=== PATIENT | male | born 1940 | race Caucasian/White ===

== ENCOUNTER 2022-01-09 12:34 | Emergency (ER) | payer MEDICARE ==
[~2022-01-09] VITALS: Ht 175.3 cm; Wt 89.5 kg
[2022-01-09] MEDS ORDERED: LABETALOL HCL100 MG PO (12:59)
[2022-01-09] MEDS ORDERED: NORVASC5 MG PO (12:59)
[2022-01-09] MEDS ORDERED: LIPITOR10 MG PO (13:00)
[2022-01-09] MEDS ORDERED: ALLOPURINOL100 MG PO (13:00)
[2022-01-09] MEDS ORDERED: VITAMIN D310 MC1 PO (13:01)
[2022-01-09] MEDS ORDERED: VITAMIN E67 MG PO (13:01)
[2022-01-09] MEDS ORDERED: FISH OIL 1,0001 EAC7 PO (13:01)
[2022-01-09] MEDS ORDERED: ASPIRIN81 MG PO (13:02)
[2022-01-09] MEDS ORDERED: LASIX20 MG PO (13:02)
[2022-01-09] MEDS ORDERED: LASIX40 MG PO (14:18)
[2022-01-09] MEDS ORDERED: PREDNISONE20 MG PO (14:18)
--- NOTE | 2022-01-09 16:50 | EKG ---
[facility] [address] [facility] [place] [address] Signed Atrial flutter with variable AV block with premature ventricular or aberrantly conducted complexes Low voltage QRS Septal infarct , age undetermined Abnormal ECG No previous ECGs available Confirmed by IRON FLOWERS MD ([id number]) on 01/09/2022 4:50:07 PM Electronically Signed By: IRON FLOWERS MD 01/09/22 1650 PATIENT NAME: NILS MILES Electrocardiogram DATE OF : 40 PHYSICIAN: IRON FLOWERS MD REPORT #: [id number] REPORT IS CONFIDENTIAL AND NOT TO BE RELEASED WITHOUT AUTHORIZATION
== END 2022-01-09 14:58 | disposition home or self-care (01) ==
LOC: ED 12:34
DX: R06.02 Shortness of breath (principal); I13.0 Hypertensive heart and chronic kidney disease with heart failure and stage 1 through stage 4 chronic kidney disease, or unspecified chronic kidney disease; I50.9 Heart failure, unspecified; N18.30 Chronic kidney disease, stage 3 unspecified; I48.91 Unspecified atrial fibrillation; Z79.899 Other long term (current) drug therapy; Z79.82 Long term (current) use of aspirin; Z20.822 Contact with and (suspected) exposure to COVID-19
CPT/HCPCS: 36415; 71045; 80053; 83735; 83880; 84484; 85025; 87502; 93005; 93010; C9803; J1100; J1940; U0003

== ENCOUNTER 2022-01-16 10:25 | Emergency (ER) | payer MEDICARE ==
[~2022-01-16] VITALS: Ht 175.3 cm; Wt 93.8 kg
[~2022-01-16 10:25] MED LIST: ALLOPURINOL100 MG PO; ASPIRIN81 MG PO; FISH OIL 1,0001 EAC7 PO; LABETALOL HCL100 MG PO; LASIX20 MG PO; LASIX40 MG PO; LIPITOR10 MG PO; NORVASC5 MG PO; PREDNISONE20 MG PO; VITAMIN D310 MC1 PO; VITAMIN E67 MG PO
--- OUTSIDE RECORDS SUMMARY | 2022-01-16 10:32 | XMS ---
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 Crystal has no Care Guidelines for this patient. Abraham VISIT COUNT (12 MO.) 2 [facility] TOTAL 2 NOTE: Visits indicate total known visits. ED/[facility] VISIT TRACKING (12 MO.) [facility] 10[facility] [place] [facility] COMPLAINT: - THREADY PULSE, NO SLEEP 01/09/2022 12:[address] 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
[2022-01-16] MEDS ORDERED: KEPPRA750 MG PO (11:43)
[2022-01-16] MEDS ORDERED: LABETALOL HCL100 MG PO (11:44)
[2022-01-16] MEDS ORDERED: LIPITOR20 MG PO (11:44)
[2022-01-16] MEDS ORDERED: NORVASC10 MG PO (11:45)
[2022-01-16] MEDS ORDERED: TYLENOL325 MG PO (11:45)
[2022-01-16] MEDS ORDERED: FLOVENT HFA10.6 GM INH (11:46)
[2022-01-16] MEDS ORDERED: VENTOLIN HFA18 GM INH (11:46)
[2022-01-16] MEDS ORDERED: VITAMIN D325 MC2 PO (11:47)
[2022-01-16] MEDS ORDERED: DOXYCYCLINE HY100 MG PO (15:52)
[2022-01-16] MEDS ORDERED: TRAZODONE HCL50 MG PO (16:09)
--- NOTE | 2022-01-16 20:37 | EKG ---
[facility] [address] [place] [address] Signed Atrial flutter with variable AV block with premature ventricular or aberrantly conducted complexes Septal infarct (cited on or before 09-JAN-2022) Abnormal ECG When compared with ECG of 09-JAN-2022 12:42, Nonspecific T wave abnormality no longer evident in Inferior leads Confirmed by JOHNNIE MACKAY MD ([id number]) on 01/16/2022 8:37:19 PM Electronically Signed By: JOHNNIE MACKAY MD 01/16/222036 PATIENT NAME: NILS MILES Electrocardiogram DATE OF : 40 PHYSICIAN: JOHNNIE MACKAY MD REPORT #: [id number] REPORT IS CONFIDENTIAL AND NOT TO BE RELEASED WITHOUT AUTHORIZATION
== END 2022-01-16 16:30 | disposition home or self-care (01) ==
LOC: ED 10:25
DX: I13.0 Hypertensive heart and chronic kidney disease with heart failure and stage 1 through stage 4 chronic kidney disease, or unspecified chronic kidney disease (principal); I50.9 Heart failure, unspecified; N18.30 Chronic kidney disease, stage 3 unspecified; J18.9 Pneumonia, unspecified organism; Z86.73 Personal history of transient ischemic attack (TIA), and cerebral infarction without residual deficits; Z88.8 Allergy status to other drugs, medicaments and biological substances; Z79.82 Long term (current) use of aspirin; Z79.899 Other long term (current) drug therapy
CPT/HCPCS: 36415; 71045; 80053; 81001; 83605; 83880; 85025; 87040; 87502; 93005; 93010; J1940; U0003

== ENCOUNTER 2022-02-02 10:49 | Inpatient (IN) | payer MEDICARE ==
[~2022-02-02] VITALS: Ht 175.3 cm; Wt 80.5 kg
[~2022-02-02 10:49] MED LIST changes: +DOXYCYCLINE HY100 MG PO; +FLOVENT HFA10.6 GM INH; +KEPPRA750 MG PO; +LIPITOR20 MG PO; +NORVASC10 MG PO; +TRAZODONE HCL50 MG PO; +TYLENOL325 MG PO; +VENTOLIN HFA18 GM INH; +VITAMIN D325 MC2 PO; +VITAMIN E400 UNI1 PO; -VITAMIN E67 MG PO
--- OUTSIDE RECORDS SUMMARY | 2022-02-02 10:58 | XMS ---
PreManage Notification: NILS MILES Security Shelver Events No recent Security Events currently on file CRITERIA MET - [facility] - 2 Visits in 30 Days CARE PROVIDERS There are no care providers on record at this time. Crystal has no Care Guidelines for this patient. Abraham VISIT COUNT (12 MO.) [address] [facility] TOTAL 3 NOTE: Visits indicate total known visits. ED/C VISIT TRACKING (12 MO.) 02/02/2022 10:[address] 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 - Fever, unspecified - Heart failure, unspecified - Chronic kidney disease, stage 3 unspecified 01/09/2022 12:36 [facility] [place] TYPE: Emergency COMPLAINT: - DIFFICULTY BREATHING, LOW O2 SATS DIAGNOSES: - Other detention (current) drug therapy - 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
[2022-02-02] MEDS ORDERED: FUROSEMIDE40 MG PO (11:12)
--- NOTE | 2022-02-02 13:40 | NUR ---
Pt arrives to room via stretcher accompanied by ED staff. Portable oxygen in place via non-rebreather at 15L. Pt ambulatory from ED stretcher to bed, and tolerated well. Work of breathing labored but unchanged from arrival. Continues to have oxygen in place at 15L via non-rebreather. Assisted pt into pt gown, pt then ambulatory to recliner at bedside, tolerated that well. Vital signs taken, pt reports F[place], pain level 3/10, requesting Tylenol and a meal. Care assumed by charge nurse Maren. Tylenol given and call to dietary for meal tray.
--- NOTE | 2022-02-02 14:40 | NUR ---
pt up in chair resting with meal - pt reports he is hungary, no food today. alert and oriented, call light in reach.
--- NOTE | 2022-02-02 15:14 | NUR ---
pt talkative up in chair eating - talking about end of life and his options in ER - declines ventalator - using 15 L non re breather mask inbetween eating.
--- NOTE | 2022-02-02 15:22 | NUR ---
Spoke with Nikita, he states he moved here 6 weeks ago to live at a lower elevation due to his interstitial lung disease. He lives alone in an apartment with 6 steps. He denies issues getting in or out of his home. He drives and drove himself to the hospital. States he has home 02 concentrator and tanks from [facility] at 2-4 L as needed. He denies financial issues. He states he girlfriend, Ryann Aguiar [phone] will be arriving to care for him. She is a nurse. He is now stating he should have not left her. He denies other needs and plans on dc to home when cleared medically. Pt is sob and coughing frequently with his NRB mask in place.
[2022-02-02] MEDS ORDERED: ALLOPURINOL100 MG PO (16:16)
--- NOTE | 2022-02-02 16:17 | NUR ---
MED REC COMPLETE
--- NOTE | 2022-02-02 17:27 | NUR ---
MEDICATION DUE. PT REPORTS HE ALREADY TOOK LIPITOR THIS MORNING AND THAT HE NORMALLY TAKES THIS MEDICATION IN THE MORNING. PHARMACY CALLED, JERRY STATES HE WILL RETIME MEDICATION FOR THE MORNING. PT DENIES ADDITIONAL REQUESTS OR COMPLAINTS. PT DENIES PAIN AND NAUSEA. PT REPORTS COLD SORBET HIS HELPING HIS DRY THROAT. NO ADDITIONAL NEEDS AT THIS TIME. CALL LIGHT WITHIN REACH.
--- NOTE | 2022-02-02 19:32 | NUR ---
PT REQUESTS ASSISTANCE UP TO RESTROOM. STAND BY ASSIST UP TO RESTROOM FOR LINE MANAGEMENT. PT VOIDS 200ML DARK YELLOW URINE. PT PERFORMS SELF ORAL CARE. PT STATES SHORTNESS OF BREATH IS "MUCH BETTER" SINCE ADMISSION. STAND BY ASSIST BACK TO BED. NO ADDITONAL REQUESTS OR COMPLAINTS. CALL LIGHT WITHIN REACH.
--- NOTE | 2022-02-02 20:50 | NUR ---
RETIMED [facility] FOR MORNING ADMINSTRATION PER TELEPHONE ORDER DR. MACKAY. PATIENT OXYGEN SATURATION 95% ON 15 L HIGH FLOW, DR. MACKAY VERBALIZED OKAY TO TITRATE TO MAINTAIN OXYGEN SATURATION >90%. UPDATED PATIENT ON POC, ORIENTED TO ROOM, DISCUSSED FALL RISKS. PATIENT VERABLIZED WOULD CALL WHEN AMBULATING.
--- NOTE | 2022-02-02 21:00 | NUR ---
TITRATED PATIENT TO 13 LITERS HIGH FLOW NC, 02 SATURATION 92% PATIENT BREATHING EASY, NO SIGNS OF DISTRESS. UP TO BATHROOM USE URINAL, PATIENT INSISTANT AMBULATE INTO BATHROOM, INCREASED O2 TO 15 LITERS WITH ACTIVITY. BACK TO BED PATIENT LIPS APPEAR CYANOTIC, USING ACCESSORY MUSCLES AND BREATHING LABORED. APPEARED TO TAKE ABOUT 5 MINUTES FOR PATIENT TO RECOVER. PATIENT REQUESTED TO KEEP OXYGEN AT THE 15 LITERS. PROVIDED REASSURANCE AND ACKNOWLEDGED THE PATIENT'S REQUEST. PLAN TO MAINTAIN AT 15 LITERS HIGH FLOW.
--- NOTE | 2022-02-02 22:46 | EKG ---
[facility] [address] [facility] [place] [address] Signed Atrial flutter with variable AV block with premature ventricular or aberrantly conducted complexes Septal infarct (cited on or before 09-JAN-2022) Abnormal ECG When compared with ECG of 02-FEB-2022 10:57, (Unconfirmed) Atrial flutter has replaced Atrial fibrillation Confirmed by JOHNNIE MACKAY MD ([id number]) on 02/02/2022 10:46:05 PM Electronically Signed By: JOHNNIE MACKAY MD 02/02/22 2246 PATIENT NAME: NILS MILES Electrocardiogram DATE OF : 40 PHYSICIAN: JOHNNIE MACKAY MD REPORT #: [id number] REPORT IS CONFIDENTIAL AND NOT TO BE RELEASED WITHOUT AUTHORIZATION
--- NOTE | 2022-02-03 | NUR ---
PATIENT'S LIFE PARTNER KERI ARRIVED. PATIENT UP TO BATHROOM WITH VISITOR WHO PLANS TO STAY THE NIGHT AND OFFER SUPPORT TO PATIENT. KERI VERBALIZED CONCERNS WITH PATIENT NOT BEING ABLE TO RETURN HOME TO HIS APARTMENT AND WANTING TO HAVE CARE MEETING WITH DR. MACKAY IN REGARDS TO TRANSITIONING TO COMFORT CARE. SENT DR. MACKAY A MESSAGE AND REPROTED REQUEST TO CHARGE NURSE. ALSO REQUESTED PASTORIAL CARE TO BE CONTACTED IN THE MORNING.
--- NOTE | 2022-02-03 00:05 | NUR ---
BED ALARM GOING OFF, pt REPOSITIONING SELF IN BED. WARM BLANKET PROVIDED AND BED ALARM RESUMED. CALL LIGHT IN REACH, WILL CONTINUE TO MONITOR.
--- NOTE | 2022-02-03 01:03 | NUR ---
PATIENT UP TO BATHROOM, APPEARS TO BE WIDE AWAKE STATING " I THINK THE STEROIDS ARE WORKING GREAT!" PATIENT VERY TALKATIVE. BREATHING UNLABORED, AT REST. KERI PLANNING TO STAY THE NIGHT.
--- NOTE | 2022-02-03 06:00 | NUR ---
PATIENT SLEPT WELL FROM 0200 TILL ABOUT 0600. PATIENT APPEARS AWAKE AND ALERT. 15L HIGH FLOW NC @ 98%. NO COMPLAINTS OF PAIN.
--- NOTE | 2022-02-03 07:15 | NUR ---
REPORT RECEIVED FROM RAISA RIOS. PT LAYING IN BED ON RIGHT SIDE. SIGNIFICANT OTHER IN ROOM ON COUCH. PT RESPONDS WHEN ADDRESSED. PT ON 15L NC. PT REPORTS NO NEEDS AT THIS TIME. CALL LIGHT IN REACH.
--- NOTE | 2022-02-03 08:15 | NUR ---
THIS RN IN TO PERFORM AM VS SO AM B/P MEDS CAN BE GIVEN. PATIENT'S VS ARE STABLE. PATIENT'S BREAKFAST HAS JUST ARRIVED AND THIS RN HAS SET P PATIENT'S TRAY FOR HIM TO EAT. PATIENT S/O INFORMED SHE WOULD HAVE TO LEAVE THE HOSPITAL FOR FOOD THE [employer] DOES NOT SERVE VISITORS ON THE WEEKEND. S/O KERI VERBALIZED UNDERSTANDING. CALL LIGHT IS IN REACH.
--- NOTE | 2022-02-03 10:09 | NUR ---
IN TO ADMINISTER MEDICATIONS. PT SITTING UP IN BED. PT TAKES PO MEDICATIONS WITH NO ISSUES. ASSESSMENT COMPLETE. PT REPORTING PAIN 1/10 IN RIGHT SHOULDER PT STATES "IT IS A CHRONIC THING." LUNG SOUNDS CRACKLES IN ALL LOBES. BOWEL TONES ACTIVE IN ALL QUADRANTS. HEART RHYTHM/RATE REGULAR WITH ASCULTATION. MODERATED EDEMA NOTED TO BLE. PT ON 15L NC WITH 02 SATS AT 92%. PT REQUESTING TO USE URINAL. URINAL PROVIDED. I&Os DOCUMENTED. PT REQUESTING PRN TYLENOL FOR RIGHT SHOULDER PAIN. PRN TYLENOL PROVIDED. NO OTHER NEEDS AT THIS TIME. CALL LIGHT IN REACH.
--- NOTE | 2022-02-03 10:46 | NUR ---
FAMILY NOTIFIED THIS RN THAT PT WOULD LIKE TO TALK WITH PROVIDER. RAISA FLAHERTY CALLED DR. MACKAY.
--- NOTE | 2022-02-03 11:05 | NUR ---
FAMILY REQUESTING TO TALK WITH PROVIDER ABOUT " WITH DIGNITY." PTs FAMILY CONCERNED ABOUT SAFE DC PLAN. NOTIFIED MD. CHARGE NURSE SPOKE WITH PTs FAMILY. THIS RN SPOKE WITH PT AND PTs FAMILY. PLANS TO TALK WITH CASE MANAGEMENT ON SATURDAY MADE. IV ABX FINISHED. PT SL. NO OTHER NEEDS AT THIS TIME. CALL LIGHT IN REACH.
--- NOTE | 2022-02-03 12:28 | NUR ---
IN TO REASSESS PAIN AND ROUND ON PT. PT SITTING UP IN BED WITH MEAL TRAY. PT REPORTING PAIN AT /10. PT REQUESTING MORE WATTER, WATER PROVIDED. NO OTHER NEEDS AT THIS TIME. CALL LIGHT IN REACH.
--- NOTE | 2022-02-03 13:46 | NUR ---
MEDICATION DUE. THIS RN TO ROOM TO CHECK ON PT. PT RESTING IN BED, WATCHING TV. PT TELLING STORIES OF HIS YOUNGER WORKING YEARS. MEDICATION GIVEN. VITAL SIGNS STABLE. ADDITIONAL LEMON ICE PROVIDED PER PT REQUEST. ICE WATER REFILLED. CALL LIGHT WITHIN REACH. BED RAILS UP. NO ADDITIONAL REQUETS OR COMPLAINTS.
--- NOTE | 2022-02-03 14:27 | NUR ---
IN TO ROUND ON PT. PT SITTING UP IN BED WITH TELEVISION ON. ASSESSMENT COMPLETE. LUNG SOUNDS CRACKLES THROUGHOUT ALL LOBES. AUSCULTATION OF HEART RHYTHM IRREGULAR. PT HAS HX OF AFIB. BOWEL TONES ACTIVE. PT REPORTS NO PAIN AT THIS TIME. PT REQUESTING TO USE URINAL, URINAL PROVIDED. NO OTHER NEEDS AT THIS TIME. CALL LIGHT IN REACH.
--- NOTE | 2022-02-03 15:40 | NUR ---
IN TO ANSWER CALL LIGHT. PT ASKED ABOUT MEDICATIONS. QUESTION ANSWERED. PT REQUESTING TOGOLESE ICE CUP, TOGOLESE ICE CUP PROVIDED. NO OTHER NEEDS AT THIS TIME. PT SITTING UP IN BED WITH TELEVISION ON.
--- NOTE | 2022-02-03 16:33 | NUR ---
PT FAMILY REQUESTING NEW GOWN AND PANTS. NEW GOWN AND PANTS PROVIDED. PT SITTING IN BED REQUESTING DUO-NEB TX AND MORPHINE, MORPHINE ADMINISTERED. RT CALLED FOR DUO-NEB TX. NO OTHER NEEDS AT THIS TIME. CALL LIGHT IN REACH. FAMILY IN ROOM.
--- NOTE | 2022-02-03 17:55 | NUR ---
IN TO ROUND ON PT. PT REPORTING PAIN 2/10. PT SITTING UP IN BED WITH MEAL TRAY, REQUESTING MEAL TRAY TO BE REMOVED. I&Os RECORDED. VITALS COMPLETE. NO OTHER NEEDS AT THIS TIME. CALL LIGHT IN REACH.
--- NOTE | 2022-02-03 21:00 | NUR ---
Pt on 15L high flow O2, lungs with crackles at baes, sob with exertion, milagro/collins colored skin, dusky lips nad nails, delayed capillary refill present. abd large firm, R umbilical hernia present, non tender, uses urinal, voiding small amount QS urine. edema to LE, R more than left, see assessment. tolerating liquid well, medicated with Tylenol and Morphine, c/o sob and pain. Pt requests to have only 325mg Tylenol. call light at hands reach, family rooming in
--- NOTE | 2022-02-03 22:21 | NUR ---
PT AWAKE, HOB ELEVATED, O2 IN PLACE 15L HIGH FLOW O2 W HUMIDIFIER. NO C/O SOB, NO FURTHER C/O PAIN, "I FEEL GOOD RIGHT NOW". WATCHING TV, CALL LIGHT AND FLUIDS AT BEDSIDE
--- NOTE | 2022-02-03 23:21 | NUR ---
hob elevated, O2 15LNC high flow in place, eyes closed, no distress, call light and fluids at bedside. Family rooming in
--- NOTE | 2022-02-04 03:00 | NUR ---
RESTING, EYES CLOSED, ON 15LNC O2, NO DISTRESS, CALL LIGHT AND FLUIDS AT HANDS REACH, FAMILY AT BEDSIDE
--- NOTE | 2022-02-04 05:02 | NUR ---
Resting, eyes closed, laying on left side, no distress O2 15L high flow w humidifier. call light at hands brennan, has used urinal. voiding medium yellow urine
--- NOTE | 2022-02-04 06:12 | NUR ---
awakes, easily, up to br, c/o sob with exertion, medicated with morphine 15mg per sob
--- NOTE | 2022-02-04 07:00 | NUR ---
REPORT RECEIVED FROM RAISA MAGAÑA. PT SITTING UP IN BED AND RESPONDS WHEN ADDRESSED. PT REQUESTING ICE WATER, ICE WATER PROVIDED. PT REPORTS NO OTHER NEEDS AT THIS TIME. CALL LIGHT IN REACH.
--- NOTE | 2022-02-04 07:44 | NUR ---
THIS RN IN TO SEE PATIENT AND DO PRE B/P MED VITALS. VS ARE STABLE. PATIET DENIES ANY OTHER CARE NEEDS AT THIS TIME. CALL LIGHT IS IN REACH. AND S/O SLEEPING ON THE COUCH.
--- NOTE | 2022-02-04 08:28 | NUR ---
IN TO ADMINISTER MEDICATIONS, SEE MAR. PT SITTING UP IN BED AND TAKES PO MEDICATIONS WITH NO ISSUES. ASSESSMENT COMPLETE. LUNG SOUNDS IN SHIRA CLEAR, RUL DIMINISHED, LLL AND RLL CRACKLES. RT IN ROOM AND DECREASED PTs O2 TO 13L NC WITH HUMIDIFIER AND PTs O2 SATS AT 93%. HEART RATE/RHYTHM WITH AUSCULTATION IRREGULAR, PT HAS HX OF AFIB. BOWEL TONES ACTIVE IN ALL QUADRANTS. GOOS CAPILLARY REFILL IN BLE, LESS THAN 3 SECONDS. MEAL TRAY DELIVERED. NO OTHER NEEDS AT THIS TIME. CALL LIGHT IN REACH.
--- NOTE | 2022-02-04 09:58 | NUR ---
PATIENT CALLED FOR 5/10 RIGHT SHOULDER PAIN AND WAS GIVEN PO TYLENOL FOR COMFORT. PATIENT DENIES ANY OTHER CARE NEEDS AT THIS TIME. FAMILY VISTING WITH PATIENT, AND CALL LIGHT IS IN REACH.
--- NOTE | 2022-02-04 11:31 | NUR ---
PATIENT REQUESTED A VISIT FROM THE SHERYL. THIS RN CALLED THE SHERYL AND SHE HAS ARRIVED AND IS VISITING WITH PATIENT AND FAMILY AT THIS TIME.
--- NOTE | 2022-02-04 12:00 | NUR ---
FAMILY ASKING FOR WHEELCHIAR AND O2 TANKS TO TAKE PT OUT OF ROOM [facility] WHEELCHAIR AND O2 TANKS SET UP FOR WHEN THEY ARE READY.
--- NOTE | 2022-02-04 12:30 | NUR ---
DONE VISITING PT AND FAMILY. 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 SEE CHAPLAINS NOTE.
--- NOTE | 2022-02-04 12:33 | NUR ---
RAISA Howard notified me that PT had requested a spiritual consult. Upon arrival at hospital, I received brief report from Lee regarding PT state of mind and health situation. PT was sitting up at side of bed with partner in the room. Indicated he was comfortable talking in front of her, and declined her offer to leave. PT talked for extended time about his life history and past spiritual practices. PT and partner talked frankly and openly about end of life. PT expressed fear of "being a burden." Through ongoing conversation his partner expressed that caring for him would not be a burden and that she wanted him still in her life until that life ended naturally. She expressed an awareness of end of life processes and assured PT that there was no "right way to be" during this process. PT expressed fear of pain. Reminded PT that part of palliative care is pain medication to ease any discomfort that occurs. I primarily exercised the ministry of presence, listening to PT talk, and reiterating what partner was expressing. After some time, PT's talk of suicide had ceased and he expressed a willingness to accept care from his support system. Indicated conversation had helped and thanked me for my time.
--- NOTE | 2022-02-04 13:29 | NUR ---
PT OUT OF ROOM WITH FAMILY. PT IN WHEELCHAIR AND ON O2.
--- NOTE | 2022-02-04 14:15 | NUR ---
IN TO ADMINISTER MEDICATIONS. PT SITTING ON EDGE OF BED. PT TAKES PO MEDICATIONS WITH NO ISSUES. PT PLACED ON CONTINUOUS PULSE OX. O2 AT 88% ON 15L NC. PT REPORTS NO NEEDS AT THIS TIME. CALL LIGHT IN REACH.
--- NOTE | 2022-02-04 17:40 | NUR ---
ASSESSMENT COMPLETE. LUNG SOUNDS CRACKLES IN ALL LOBES. PTs O2 AT 89% ON 15L NC. PT DENIES WANTING PRN MORPHINE AT THIS TIME. PT REPORTS PAIN 1/10 IN RIGHT SHOULDER. PT DENIES PRN PAIN MEDICATION AT THIS TIME. BOWEL TONES ACTIVE IN ALL QUADRANTS. HEART RHYTHM/RATE IRREGULAR WITH AUSCULTATION. PT HAS HX OF AFIB. NO OTHER NEEDS FROM RN AT THIS TIME. CALL LIGHT IN REACH.
--- NOTE | 2022-02-04 19:52 | NUR ---
REPORT RECEIVED FROM RNS LEMUEL AND TATYANA. pt SITTING UP AT SIDE OF BED. 15L HIGH FLOW NC IN PLACE. SIGNIFICANT OTHER IN ROOM. pt DENIES ANY NEEDS AT THIS TIME. WILL LIKE PRN MEDICATIONS AROUND 2100 WITH NIGHTLY MEDS. REMINDED pt TO USE CALL LIGHT WITH NEEDS. CALL LIGHT IN REACH.
--- NOTE | 2022-02-04 21:00 | NUR ---
CALL LIGHT ANSWERED. pt COMPLAINS OF 3/10 PAIN IN RIGHT SHOULDER. PRN PAIN MEDICATION ADMINISTERED. pt SITTING UP AT SIDE OF BED 15L OXYGEN BY HIGH FLOW NC IN PLACE. ASSESSMENT COMPLETE. ICE WATER REFILLED. CALL LIGHT IN REACH. NO ADDITIONAL REQUESTS. SIGNIFICANT OTHER IN ROOM.
--- NOTE | 2022-02-04 22:00 | NUR ---
SIGNIFICANT OTHER OUT OF ROOM, WOULD LIKE WOKEN UP WHEN pt'S SON ARRIVES. NO ADDITIONAL REQUESTS.
--- NOTE | 2022-02-04 23:16 | NUR ---
pt'S SIGNIFICANT OTHER TO NURSES STATION. STATES PATIENT IS ANXIOUS, SOB. SPO2 81%. IN ROOM TO ASSESS pt. pt SITTING AT SIDE OF BED, SPO2 NOW 91% WITH 15L OXYGEN BY HIGH FLOW NC IN PLACE. CRACKLES AUSCULTATED THROUGHOUT LUNG LOBES. pt STATES "I THINK I'M BETTER NOW". CALL LIGHT IN REACH.
--- NOTE | 2022-02-04 23:54 | NUR ---
SIGNIFICANT OTHER TO NURSES STATION. pt COMPLAINS OF SOB, ANXIETY, DISCOMFORT. PRN PAIN MEDICATION ADMINISTERED REQUESTED. pt SITTING UP AT SIDE OF BED, EATING FRUIT AT THIS TIME. NO DISTRESS NOTED. 15L OXYGEN BY NC IN PLACE. CALL LIGHT IN REACH.
--- NOTE | 2022-02-05 00:28 | NUR ---
pt'S SON NOW IN ROOM. pt RESTING IN BED AWAKE, HOB ELEVATED. 15L OXYGEN BY NC IN PLACE. NO DISTRESS NOTED.
--- NOTE | 2022-02-05 06:39 | NUR ---
pt SLEEPING, AWAKENS TO VOICE. STATES THAT HE SLEPT WELL. VSS, SPO2 89-90% WITH 15L OXYGEN BY HIGH FLOW NC. ASSESSMENT COMPLETE. pt DENIES NEED FOR PRN MORPHINE AT THIS TIME. SHERBERT AND ICE WATER PROVIDED. CALL LIGHT IN REACH.
--- NOTE | 2022-02-05 07:06 | NUR ---
Received 02 qualifier from yesterday. RT recommending 02 15 L. Will request RX from Dr. Nassar this am and fax all to [facility] to update their orders. Pt has 02 at home from [facility], but has been using lower rate.
--- NOTE | 2022-02-05 07:15 | NUR ---
REPORT RECEIVED FROM RAISA SERVIN. PT SITTIG ON EDGE OF BED. JULIAN ODELL IN ROOM WITH PT. NO NEEDS FROM THIS RN AT THIS TIME. CALL LIGHT IN REACH.
--- NOTE | 2022-02-05 08:06 | NUR ---
THIS RN IN TO DO VS FOR AM B/P MEDS WHICH WERE STABLE EXCEPT FOR HIS 89% SAT ON 15L/NC HIGH FLOW O2. RT IN TO SEE PATIENT AND GIVING A NEB TREATMENT AT THIS TIME.
--- NOTE | 2022-02-05 08:30 | NUR ---
THIS RN IN TO SEE PATIENT. PATIENT HAS FINISHED A NEB TREATMENT FROM RT. PATIENT STILL A LITTLE SOB AND HAVING 5/10 RIGHT SHOULDER PAIN SO PO MORPHINE AND TYLENOL GIVEN WITH AM MEDS. THIS RN SET UP PATIENT'S BREAKFAST TRAY FOR HIM AND HE IS EATING NOW. CALL LIGHT IN REACH AND PATIENT HAS NO OTHER CARE NEEDS AT THIS TIME.
--- NOTE | 2022-02-05 09:42 | NUR ---
IN TO ADMINISTER MEDICATIONS. PT SITTING ON EDGE OF BED WITH SIGNIFICANT OTHER AT BEDSIDE. PT TAKES PO MEDICATIONS WITH NO ISSUES. ASSESSMENT COMPLETE. LUNG SOUNDS DIMINISHED IN LLL AND RLL. PT ON 15L O2 WITH O2 SATS AT 89%. BOWEL TONES ACTIVE IN ALL QUADRANTS. HEART RATE/RHYTHM WITH AUSCULTATION IRREGULAR. PT HAS HX OF AFIB. PT GETS UP TO BATHROOM TO PERFORM ORAL CARE. STEADY SLOW GAIT NOTED. SIGNIFICANT OTHER REQUESTING SHOWER CHAIR FOR PT. PLANS MADE TO BRING A SHOWER CHAIR TO ROOM. NO OTHER NEEDS AT THIS TIME. PT STANDING AT BATHROOM SINK. SIGNIFICANT OTHER AND SON IN ROOM.
--- NOTE | 2022-02-05 10:45 | NUR ---
INTO PATIENT ROOM. PATIENT SITTING ON BED, OXYGEN IN PLACE. SO KERI AT BEDSIDE. ASSISTED PATIENT TO BATHROOM SINK. PATIENTS TOLERANCE FOR TRANSFER IS FAIR TO POOR. PATIENT UNSTEADY ON FEET WHEN RETURN TO BED. KERI ASKING FOR THIS RN TO RETURN WHEN PATIENT SON AND HER DAUGHTER ARE ABLE TO PARTICIPATE IN CONVERSATION. WILL RETURN AT 11:30 TO MEET WITH PATIENT AND FAMILY.
--- NOTE | 2022-02-05 11:45 | NUR ---
INTO PATIENT ROOM, PATIENT SON RIC AND SO KERI AT THE BEDSIDE. PATIENT SITTING ON THE BED WITH OXYGEN IN PLACE. DISCUSSED OPTION FOR DISCHARGE INCLUDING HOME WITH HOSPICE AND PLACEMENT TO AN [place]. PATIENT STATES HE HAS LIMITED FUNDS AND DOES NOT BELIEVE HE WILL BE ABLE TO PAY AT THIS TIME. PATIENT SON DOES OFFER TO ASSIST WITH PAYMENT IF NEEDED. PATIENT FEELS HE WOULD RATHER DISCHARGE TO HIS HOME WITH THE ASSISTANCE OF HIS FAMILY. KERI AND RIC HAVE BOTH AGREED TO STAY WITH THE PATIENT 24 HOURS. DISCUSSED IN DETAIL THE PURPOSE AND MISSION ON HOSPICE CARE. PLAN TO CONTACT LOCAL HOSPICE AGENCIES FOR [facility] REFERRAL. ORDERS FOR INCREASED O2 FAXED TO [facility]. PATIENT, KERI AND RIC ALL AGREE TO PLAN MOVING FORWARD.
--- NOTE | 2022-02-05 12:10 | NUR ---
IN TO ROUND ON PT. PT AND FAMILY TALKING WITH CASE MANAGEMENT. NO NEEDS FROM THIS RN AT THIS TIME.
--- NOTE | 2022-02-05 12:30 | NUR ---
THIS RN CALLED RT AT PATIENT'S REQUEST AND THEY ARE GOING TO COME GIVE A NEB TREATMENT.
--- NOTE | 2022-02-05 13:51 | NUR ---
IN ROOM TO ADMINISTER MEDICATION. PT SITTING ON EDGE OF BED. PT TAKES PO MEDICATION WITH NO ISSUES. SIGNIFICANT OTHER AND SON IN ROOM. SIGNIFICANT OTHER REPORTING PT IS GETTING READY TO GET INTO THE SHOWER. SHOWER SUPPLIES SET UP. JULIAN ODELL IN ROOM TO GET VITALS. NO OTHER NEEDS FROM THIS RN AT THIS TIME.
--- NOTE | 2022-02-05 14:09 | NUR ---
SPOKE WITH BRIANNE AT [facility], SHE IS ATTEMPTING TO FIND A STAFF MEMEBER WHO WOULD BE WILLING TO DO AN AFTER HOURS ADMIT THEIR NEXT OPENING IS 02/13/22. CHART FAXED TO [facility].SPOKE TO ADMISSION RN AT [facility], SHE STATES SHE WILL REVIEW THE CHART SHIRAZ AND SEE IF THEY WOULD BE ABLE TO ADMIT THE PATIENT BY THE END OF THE WEEK. INTO ROOM, PATIENT CURRENTLY IN THE SHOWER WITH THE ASSIST OF KERI. SON RIC UPDATED OF THE CURRENT PLAN.
--- NOTE | 2022-02-05 15:17 | NUR ---
IN TO ROUND ON PT. PT SITTING ON EDGE OF BED WITH CELLULAR DEVICE. PT REQUESTS LEMON CYMRO ICE, LEMON CYMRO ICE PROVIDED. PT REPORTS NO OTHER NEEDS AT THIS TIME. CALL LIGHT IN REACH.
--- NOTE | 2022-02-05 15:44 | NUR ---
PT SITTING ON EDGE OF BED. ENCOURAGED TO ELEVATE LEGS, PT NOW LAYING IN BED WITH LEGS ELEVATED ON PILLOW. ASSESSMENT COMPLETE. LUNG SOUNDS CRACKLES AND DIMINISHED IN SHIRA, LLL, AND RLL. PT ON 15L O2 WITH HUMIDIFIER O2 SATS AT 87%. HEART RATE/RHYTHM WITH AUSCULTATION IRREGULAR, PT HAS HX OF AFIB. BLE EDEMA, LEGS ELEVATED WITH PILLOW. PT ON CELLULAR DEVICE. NO OTHER NEEDS AT THIS TIME. CALL LIGHT IN REACH.
--- NOTE | 2022-02-05 18:11 | NUR ---
IN TO ROUND ON PT AND RASSESS PAIN. PT SITTING ON EDGE OF BED WITH SON AND SIGNIFICANT OTHER IN ROOM. PT REPORTING PAIN 1/10 IN RIGHT SHOULDER. PT REPORTS NO NEEDS AT THIS TIME. CALL LIGHT IN REACH.
--- NOTE | 2022-02-05 18:22 | NUR ---
THIS RN NOTIFIED BY JULIAN DREW THAT PTs O2 IS AT 82% WHILE PT IS ON 15L NC HIGH FLOW. THIS RN ATTEMPTED TO CALL RT, NO ANSWER. THIS RN AND LEMUEL Ayon RN IN TO ADMINISTER DUO NEB. PT 02 SATS 85% ON 15L NC HIGH FLOW AFTER TX. MORPHINE OFFORED FOR DYSPNEA, PT REQUESTING THE MORPHINE. MORPHINE PROVIDED, SEE MAR. PT TAKES PO MORPHINE WITH NO ISSUES. PULSE OX MONITOR ON PT TO MONITOR O2 SATS.
--- NOTE | 2022-02-05 19:12 | NUR ---
THIS RN CALLED DR. FLOWERS TO INFORM HIM PATIENT 02 SATS REMAIN AROUND 83-84% ON HIS 15L HIGH FLOW NC AND PATIENT IS FEELING A LITTLE FAINT AND HAS TO BE SITTING STRAIGHT UP TO BREATH USING ACCESSORY MUSCLES. HAD THIS RN CALL RT TO SET UP VAPOTHERM TO KEEP SATS AT ABOUT 89% AT LEAST. LUCIO FROM RT IN THE ROOM RIGHT NOW SETTING THIS UP. ALSO ORDERING IV MORPHINE FOR QUICKER RELIEF OF AIR HUNGER IF NEEDED. REPORT GIVEN TO RAISA SERVIN.
--- NOTE | 2022-02-05 19:36 | NUR ---
REPORT RECEIVED FROM RAISA HDEZ AND RAISA JOE. pt RESTING AT SIDE OF BED, SIGNIFICANT OTHER SITTING ON BED NEXT TO pt. RT LUCIO IN ROOM TITRATING VAPOTHERM. SPO2 90% WITH 35L, 100%. ICE WATER REFILLED. CALL LIGHT IN REACH. pt DENIES SOB AT THIS TIME.
--- NOTE | 2022-02-05 21:24 | NUR ---
pt SITTING UP AT SIDE OF BED, ANXIOUS. VS COMPLETE. RR 22, LABORED BREATHING. IV PAIN MEDICATION ADMINISTERED AT THIS TIME. pt REQUESTING SOMETHING FOR ANXIETY. PHONE CALL TO MD LUISA TO PLACE ORDERS.
--- NOTE | 2022-02-05 21:46 | NUR ---
pt SITTING UP AT SIDE OF BED, FAMILY NEXT TO pt. PRN ANXIETY MEDICATIONS ADMINISTERED. PRN TYLENOL ADMINISTERED REQUESTED, RIGHT SHOULDER PAIN 06/01. ASSESSMENT COMPLETE. VAPOTHERM IN PLACE. pt PROVIDED WITH PO SNACK REQUESTED. NO ADDITIONAL NEEDS AT THIS TIME. CALL LIGHT IN REACH.
--- NOTE | 2022-02-06 00:29 | NUR ---
CHECKED ON pt. RESTING IN BED WITH EYES CLOSED, HOB ELEVATED. VAPOTHERM 35L, 100% FIO2 ON. SIGNIFICANT OTHER IN BED WITH pt.
--- NOTE | 2022-02-06 03:58 | NUR ---
CHECKED ON pt. RESTING IN BED, EYES CLOSED, VAPOTHERM IN PLACE 35L 100% FIO2. HOB ELEVATED. SIGNIFICANT OTHER ASLEEP IN CHAIR AT BEDSIDE.
--- NOTE | 2022-02-06 06:45 | NUR ---
IN pt ROOM, UPON AWAKENING, pt ANXIOUS. TACHYPNIC, PRN MORPHINE ADMINISTERED. pt UP TO SIDE OF BED, SPO2 89% WHEN AT SIDE OF BED WITH 35L OXYGEN BY VAPOTHERM IN PLACE. pt ASSISTED TO MOVE IN BED FOR COMFORT, REPOSITIONED WITH 3 NURSING STAFF ASSIST, pt WEAK. LIPS BLUE IN COLOR. pt CONTINUES TO APPEAR ANXIOUS. PRN ATIVAN ADMINISTERED. ORAL CARE SUPPLIES SUPPLIED TO SIGNIFICANT OTHER. AT BEDSIDE AT THIS TIME.
--- NOTE | 2022-02-06 07:08 | NUR ---
IN ROOM TO REASSESS pt. RR 14 AT THIS TIME. pt ASSISTED TO REPOSTION WITH TWO RN ASSIST. ACCESSORY MUSCLE USE. VAPOTHERM IN PLACE. EYES CLOSED. FAMILY AT BEDSIDE. COFFEE PROVIDED TO SIGNIFICANT OTHER.
--- NOTE | 2022-02-06 07:30 | NUR ---
THIS RN RECEIVED SHIFT REPORT FROM RAISA SERVIN. PATIENT REPSOTIONED IN BED TO A MORE COMFORTABLE POSITION. PATIENT'S RESP=14 MIN WITH A GRREAT DEAL OF ACCESSORY MUSCLE USE. PATIENT REMAINS ON [id number]/100%FIO2. FAMILY REQUESTING TO SEE THE SHERYL AND PASTOR RIDDLE JUST ARRIVED AND WENT IN TO SEE THE PATIENT AND FAMILY. CALL LIGHT IN REACH.
--- NOTE | 2022-02-06 08:40 | NUR ---
THIS RN IN TO SEE PATIENT. PATIENT'S RESPS AR ABOUT 22/MIN NOW AND IS REQUESTING MORPHINE FOR AIR HUNGER PATIENT IS REALY USING HIS ACCESSORY MUSCLES. FAMILY DOES NOT WANT TO DO VITAL SIGNS OR ASSESSMENTS. 4MG SIVP MORPHINE GIVEN AND PATIENT REMAINS ESSENTIALLY MAXED OUT ON THE VAPOTHERM. PASTOR ALVARADO BROUGHT BREAKFAST UP FOR THE PATIENT'S . THIS RN SAT AND VISITED WITH FOR A FEW MINUTES. SHE WILL CALL IF SHE FEELS PATIENT NEEDS MORE MORPHINE OR SOME ATIVAN. ALSO DISCUSSED WITH FAMILY PO MEDS. PATIENT NOT REALLY ABLE TO TAKE PO MEDS AT THIS TIME AND DOES NOT WANT STAFF TO TRY, SO ALL PO MEDS HAVE BEEN HELD. CALL LIGHT IS IN REACH AND WILL CALL FOR ANY NEEDS.
--- NOTE | 2022-02-06 10:16 | NUR ---
THIS RN IN AND CHECKED WITH AND SHE SAYS THEY ARE DOING OK AT THIS TIME. PATIENT'S BREATHING REMAINS SOME WHAT LABORED AND HE IS NOT VERBAL AT THI STIME. PATIENT REMAINS ON HIS VAPOTHERM. WILL CALL WITH ANY NEEDS. CALL LIGHT IS IN REACH.
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
--- NOTE | 2022-02-06 11:02 | NUR ---
THIS RN IN TO SEE PATIENT IT HAS BEEN OVER TO HOURS SINCE PATIENT WAS GIVEN ANY MORPHINE. FAMILY REQUESTING MORE MORPHINE AT THIS TIME AND PATIENT BREATHING IS LABORED AND PATIENT IS HAVING A LOT OF ORAL SECRETIONS. 4MG SIVP MS HAS BEEN GIVEN AND THIS RN CONTACTED ABOUT SOME PO ATROPINE WHICH WAS ORDEREDD AND THIS RN JUST GAVE TO CUT DOWN ON SECREATIONS. PATIENT PULLED UP IN BED AND REPOSITIONED BEST POSSIBLE TO COMFORT. VAPOTHERM REMAINS ON AND AND SONE AT BEDSIDE. CALL LIGHT IN REACH. COMFORT CARE TRAY WITH FOOD AND DRINKS NOW IN THE ROOM. FAMILY HAS NO OTHER CARE NEEDS AT THIS TIME.
--- NOTE | 2022-02-06 11:29 | NUR ---
THIS RN CALLED AND TALKED TO PATIENT'S BREATHING IS STILL LABORED AT ABOUT 22BPM. INFORMED THIS RN TO GO AHEAD AND GIVE THE IV ATIVAN AND THAT HE WAS GOING TO INCREASE THE AMOUNT OF THE IV MORPHINE. THIS RN WENT BACK IN AND DISCUSSED TRYING TO MAKE THE PATIENT MORE COMFORTABLE WITH ATIVAN AND INCREASED MORPHINE AND THEY AGREED. THIS RN GAVE 1MG SIVP ATIVAN AND ANOTHER 4MG SIVP MORPHINE TO EQUAL 8MG. PATIENT RESPS ARE NOW DOWN TO 14BPM. CALL [facility] REACH. ORAL CARE GIVEN. ATROPINE SLOWING SECRETIONS. FAMILY WILL CALL IF NEEDS ARISE.
--- NOTE | 2022-02-06 12:21 | NUR ---
THIS RN IN TO SE PATIENT RESPS 18/MIN AND LABORED. 1MG SIVP ATIVAN GIVEN. FAMILY DENIED ANY OTHER CARE NEEDS AT THIS TIME. LUNCH DELIVERED TO PATIENT'S . PATIENT'S SON SITTING IN THE BEDSIDE ARMCHAIR READING. CALL LIGHT IN REACH.
--- NOTE | 2022-02-06 13:27 | NUR ---
PATIENT WAS STILL HAVING SOME AIR HUNGER AND 8MG SIVP MORPHINE GIVEN WELL 1MG SIVP ATIVN. PATIENT LOOKS MORE COMFORTABLE AT THIS TIME AND RESPS ARE ABOUT 12BPM. AND SONE WOULD LIKE TO TALK TO DR. FLOWERS NOW ABOUT THE CONTINUES USE OF THE VAPOTHERM. THIS RN CALLED DR. FLOWERS AND HE WILL BE IN TO SEE THEM IN A FEW MINUTES TO DISCUSS A TREATMENT PLAN. CALL LIGHT IS IN REACH.
--- NOTE | 2022-02-06 13:30 | NUR ---
Spoke with pts girlfriend and son. Pt on vapotherm at 35 %. Not awake, lips and face blue. Discussed with son and girlfriend if this is what pt was wanting. Both state no, and feel pt would not want a nonrebreather mask or the high flow. They would like to cont. to medicate pt for pain and anxiety and place pt on nc and let him go. They deny other family need to visit, there is a friend from [place] on his way, but he had let the family know to not attempt to keep the pt waiting for him to arrive. If pt passes this is ok. Let them know I will update Dr. Landry.
--- NOTE | 2022-02-06 14:31 | NUR ---
PATIENT GIVEN 1MG MORE OF IV ATIVAN AND DR. FLOWERS HAS JUST TALKED WITH THE FAMILY AND SOON WE CAN GET AN IV DRIP OF MORPHINE UP AND RUNNING WE WILL START TURNING THE VAPOTHERM DOWN. FAMILY AT BEDSIDE AND CALL LIGHT IS IN REACH.
--- NOTE | 2022-02-06 15:31 | NUR ---
PATIENT GIVEN ANOTHER 8MG SIVP MORPHINE AND 1MG SIVP ATIVAN FOR COMFORT FOR AIR HUNGER. VAPOTHERM TURNED DOWN TO 25L/MIN AND FIO2 DECREASED TO 85%. PATIENT'S LAYING IN BED BESIDE HIM TRYING TO GIVE HIM COMFORT. CALL LIGHT IN REACH.
--- NOTE | 2022-02-06 15:35 | NUR ---
THIS RN REMAINS IN ROOM. PATIENT HAS ONLY HAD ABOUT 4 AGONAL BREATHS IN THE LAST MINUTE. PATIENT SON HAS BEEN CALLED TO COME BACK TP THE ROOM. REMAINS AT BEDSIDE.
--- NOTE | 2022-02-06 15:43 | NUR ---
1537 PATIENT STOPPED BREATHING AND NO APICAL PULSE OR CAROTID PULSE COULD BE FELT BY THIS RN OR RAISA ORTIZ. INFORMED AND IS NOW IN THE ROOM. AND HAS PRONONCED THE PATIENT. O2 CANNULA TAKEN OF AND VAPOTHERM TURNED OFF. IV PULLED AT WIFES REQUEST. SON JUST ARRIVED IN ROOM. THIS RN LEAVING ROOM TO LET FAMILY GRIEVE.
--- NOTE | 2022-02-06 16:05 | NUR ---
Meet with "SO" and son. offered support and prayer. Called home (). waited for home and helped transport PT
--- NOTE | 2022-02-06 16:09 | NUR ---
SHERYL MCKEON HAS ARRIVED AND ALREADY HAS SPOKEN TO THE FAMILY AND IS NOW WORKING ON PATIENT'S PAPERWORK. THIS RN HAS COMPLETED HIS ASSIGNMENT WITH THE PATIENT AND HIS FAMILY AT THIS TIME, BUT WILL BE AVAILABLE IF LATISHA NEED ANYTHING FROM ME. SHERYL HAS HEADED BACK INTO THE PATIENT AND FAMILY'S ROOM.
--- NOTE | 2022-02-06 17:12 | NUR ---
SHERYL AND MORTUARY REMVING PATIENT'S BODY FROM THE HOSPITAL AT THIS TIME.
--- NOTE | 2022-02-06 19:55 | NUR ---
ES FOUND BAG CLOTHING IN CLOSET, CONTACTED KERI, SHE PLANS TO COME GET CLOTHES IN AM.
== END 2022-02-06 15:37 | DRG 196 ==
LOC: ED 10:49 → MS 13:13
PROVIDERS: ADMIT Internal Medicine; ATTEND Internal Medicine
DX: J84.10 Pulmonary fibrosis, unspecified (principal); J96.21 Acute and chronic respiratory failure with hypoxia; I48.92 Unspecified atrial flutter; I13.0 Hypertensive heart and chronic kidney disease with heart failure and stage 1 through stage 4 chronic kidney disease, or unspecified chronic kidney disease; Z51.5 Encounter for palliative care; Z66 Do not resuscitate; Z20.822 Contact with and (suspected) exposure to COVID-19; F41.9 Anxiety disorder, unspecified; I48.91 Unspecified atrial fibrillation; G40.909 Epilepsy, unspecified, not intractable, without status epilepticus; I50.9 Heart failure, unspecified; N18.30 Chronic kidney disease, stage 3 unspecified; E78.00 Pure hypercholesterolemia, unspecified; Z86.73 Personal history of transient ischemic attack (TIA), and cerebral infarction without residual deficits; Z90.49 Acquired absence of other specified parts of digestive tract; Z90.5 Acquired absence of kidney; Z88.8 Allergy status to other drugs, medicaments and biological substances; Z79.82 Long term (current) use of aspirin; Z79.899 Other long term (current) drug therapy
CPT/HCPCS: 36415; 71045; 80053; 83880; 85025; 87502; 93005; 93010; 94640; 94760; 94761; 94762; 94799; A9270; C9803; J0456; J2060; J2270; J2930; J7060; J7512; U0003